=== PATIENT | female | born 1965 | race Caucasian/White ===

== ENCOUNTER → 2017-09-23 | Outpatient (CLI) | payer OTHER | END | disposition home or self-care (01) | LOC: KCIC MRI 12:42 | DX: M25.712 Osteophyte, left shoulder (principal) | CPT/HCPCS: 73221 ==

== ENCOUNTER → 2018-06-11 | Day surgery (SDC) | payer OTHER ==
[~2018-06-11] MED LIST: ACYC800T PO; ESTR2TAB PO; HYDR12.53 PO; HYDROmorphone 2 MG/ML VIAL IV PRN; IV RINGERS,LACTATED 1000ML 1,000 ML IV SCH; LIDOCAINE 1% PF 2 ML VIAL. ID PRN; MORPHINE SULFATE 2 MG/ML VIAL. IV PRN; OMEP40CA5 PO; ONDANSETRON PF 4 MG/2 ML VIAL. IV PRN; OXYB5TAB7 PO; PROCHLORPERAZINE 10 MG/2 ML VIAL. IV PRN; PROPOFOL 40 ML IV ONE; fentaNYL PF VIAL 100 MCG/2 ML VIAL IV PRN
[2018-06-11 09:12] VITALS: BP 137/88
--- NOTE | 2018-06-11 22:10 | CONS ---
DATE OF CONSULTATION: 06/11/2018 REFERRING PHYSICIAN: Richard Fuentes MD HISTORY OF PRESENT ILLNESS: A 53-year-old female whose past medical history significant for colonic polyps, diverticular disease, high blood pressure, hyperlipidemia, seen for dysphagia and abdominal pain with diarrhea. She states she had no bleeding. Dysphagia with solids is intermittent and is recurrent. Prior dilatation was ____11/2015. She also had polyps at that time and is here for further evaluation. PAST MEDICAL HISTORY: Arthritis, colonic polyps, diverticular disease, GERD, hypertension, hyperlipidemia. ALLERGIES: FLAGYL. MEDICATIONS: Include acyclovir, estradiol, hydrochlorothiazide, omeprazole and oxybutynin. SOCIAL HISTORY: Nonsmoker, social drinker. FAMILY HISTORY: Significant for diabetes, hypertension, colonic polyps with her mother as well as an OH. PAST SURGICAL HISTORY: Status post cholecystectomy, hysterectomy, hernia repair, eye surgery. REVIEW OF SYSTEMS: Per records. PHYSICAL EXAMINATION: GENERAL: A well-nourished, well-developed female, who is alert, cooperative, in no acute distress. VITAL SIGNS: Temperature is 97.8, pulse 100, respiratory rate is 20. HEENT: Normocephalic and atraumatic head. Pupils and extraocular muscles are not tested. Sclerae anicteric. NECK: Supple. LUNGS: Clear. CARDIOVASCULAR: Reveals S1, S2 without S3, S4 or appreciable murmur. ABDOMEN: Soft abdomen, normal bowel sounds without appreciable hepatosplenomegaly. EXTREMITIES: Reveals no cyanosis, clubbing, edema. IMPRESSION AND PLAN: 1. Dysphagia, mostly likely secondary to recurrent Schatzki's ring. Differential includes achalasia, malignancy, eosinophilic esophagitis, Velazquez's. Recommend upper endoscopy with possible biopsy and/or dilatation. Risks and benefits have been discussed. The patient is willing to proceed at this time. 2. History of colonic polyps with diarrhea and left lower quadrant abdominal pain. Interval colonoscopy is recommended to assess for inflammatory bowel disease, ischemic colitis, diverticulitis, ____ and/or recurrent polyp/cancer. KOTA CONNORS MD DR: LEDY/contreras JOB#: [id number] / [id number]
--- NOTE | 2018-06-14 15:07 | PATHOLOGY ---
[facility] Accession Number: [id number] . 01 Material submitted: . DISTAL ESOPHAGEAL BX . 01 Clinician provided ICD-10: R10.9 R19.7 . 01 Clinical history: . Dysphagia, abdominal pain, diarrhea . 02 Diagnosis: Esophageal biopsies, distal esophagus: - Esophagitis with eosinophils. . (JPM:mml; 06/14/18) QLM/06/14/2018 . 02 Comment: Sections of the distal esophageal biopsy reveal segments of tangentially-oriented, hyperplastic squamous esophageal mucosa. There are focal intraepithelial eosinophils as well as focal intraepithelial neutrophils. The differential diagnosis of esophagitis with eosinophils includes reflux esophagitis, "pill esophagitis", and eosinophilic esophagitis. Most areas show few intraepithelial eosinophils. These areas plus the presence of focal intraepithelial neutrophils would be compatible with reflux esophagitis. However, there is one focus showing up to approximately 20-30 intraepithelial eosinophils per high power field. This is suggestive of eosinophilic esophagitis. There is no evidence of Velazquez's change, dysplasia, or malignancy. Correlate clinically. . (JPM:mml; 06/14/18) . 02 Electronically signed: . Brian Chávez MD, Pathologist NPI- [id number] . 01 Gross description: . Received in formalin labeled "Conchis Davis, distal esophageal BX," are 3 segments of gonzalez soft tissue measuring 1.2 x 0.8 x 0.2 cm in aggregate dimensions and ranging from 0.4 to 0.5 cm in maximum dimension. The specimen is submitted entirely in cassette A1. (TSD; 06/11/2018) TOB/TOB . 02 Pathologist provided ICD-10: K20.9 . 02 CPT . 813081 Specimen Comment: A courtesy copy of this report has been sent to Specimen Comment: [phone], . Specimen Comment: Report sent to / DR CLARK Performed at: [address], [place] [id number] MD Christo Marina MD Phone: [phone] Performed at: 02 [facility] [address] [place], [place] [id number] MD Brian Chávez MD Phone: [phone]
== END | disposition home or self-care (01) ==
LOC: SURG 06:39
PROVIDERS: ATTEND Internal Medicine Gastroenterology
DX: K57.30 Diverticulosis of large intestine without perforation or abscess without bleeding (principal); K64.0 First degree hemorrhoids; K22.2 Esophageal obstruction; K21.0 Gastro-esophageal reflux disease with esophagitis; K31.7 Polyp of stomach and duodenum; I10 Essential (primary) hypertension; E78.5 Hyperlipidemia, unspecified; Z86.010 Personal history of colon polyps; M19.90 Unspecified osteoarthritis, unspecified site; Z88.8 Allergy status to other drugs, medicaments and biological substances; Z72.89 Other problems related to lifestyle; Z79.899 Other long term (current) drug therapy; Z82.49 Family history of ischemic heart disease and other diseases of the circulatory system; Z83.3 Family history of diabetes mellitus; Z83.71 Family history of colonic polyps; Z90.710 Acquired absence of both cervix and uterus; Z90.49 Acquired absence of other specified parts of digestive tract; Z98.890 Other specified postprocedural states
CPT/HCPCS: 43239; 43450; 45378; 88305; J2704

== ENCOUNTER → 2018-09-01 | Outpatient (CLI) | payer OTHER ==
[2018-06-11 09:12] VITALS: BP 137/88
[~2018-09-01] MED LIST changes: -HYDR12.53 PO; +HYDR12.575 PO; -HYDROmorphone 2 MG/ML VIAL IV PRN; -IV RINGERS,LACTATED 1000ML 1,000 ML IV SCH; -LIDOCAINE 1% PF 2 ML VIAL. ID PRN; -MORPHINE SULFATE 2 MG/ML VIAL. IV PRN; -ONDANSETRON PF 4 MG/2 ML VIAL. IV PRN; -PROCHLORPERAZINE 10 MG/2 ML VIAL. IV PRN; -PROPOFOL 40 ML IV ONE; -fentaNYL PF VIAL 100 MCG/2 ML VIAL IV PRN
--- NOTE | 2018-09-01 12:30 | RAD ---
EXAM: Nuclear gastric emptying scan. HISTORY: Reflux. COMPARISON: None. TECHNIQUE: Serial static images were obtained over the stomach following oral administration of 2.2 mCi of 99m-Tc sulfur colloid. FINDINGS: The stomach empties into the small bowel without evidence of reflux in the area of the esophagus. The estimated time for half emptying of gastric contents, i.e. 'gastric emptying time' is 108 minutes (normal is 66 +/- 22 minutes). There is 66% retained tracer activity within the stomach at one hour, 45% retained tracer activity within the stomach at 2 hours, 27% retained tracer activity within the stomach at 3 hours, and 11% retained tracer activity within the stomach at 4 hours. IMPRESSION: Delayed gastric emptying. The gastric emptying half-time is calculated at 108 minutes. Electronically signed by: Kaye Gibbs MD (09/01/2018 12:25 PM) [facility]
== END | disposition home or self-care (01) ==
LOC: NM 07:16
PROVIDERS: ATTEND Internal Medicine Gastroenterology
DX: K30 Functional dyspepsia (principal)
CPT/HCPCS: 78264; A9541

== ENCOUNTER → 2018-09-29 | Outpatient (CLI) | payer OTHER ==
[2018-06-11 09:12] VITALS: BP 137/88
[2018-10-02 13:15] LABS: ALTERNARIA <0.10 kU/L (Class 0); ASH <0.10 kU/L (Class 0); ASPERGILLUS <0.10 kU/L (Class 0); BERMUDA <0.10 kU/L (Class 0); CAT DANDER <0.10 kU/L (Class 0); CLADOSPORIUM <0.10 kU/L (Class 0); COCKROACH <0.10 kU/L (Class 0); CODFISH <0.10 kU/L (Class 0); CORN <0.10 kU/L (Class 0); COTTONWOOD <0.10 kU/L (Class 0); D PTERONYSSINUS <0.10 kU/L (Class 0); DOG DANDER <0.10 kU/L (Class 0); DUST MITE <0.10 kU/L (Class 0); EGG WHITE <0.10 kU/L (Class 0); ELM <0.10 kU/L (Class 0); MAPLE <0.10 kU/L (Class 0); MILK <0.10 kU/L (Class 0); MOUNTAIN CEDAR <0.10 kU/L (Class 0); MULBERRY <0.10 kU/L (Class 0); NETTLE <0.10 kU/L (Class 0); OAK TREE <0.10 kU/L (Class 0); PEANUT <0.10 kU/L (Class 0); PENICILLIUM <0.10 kU/L (Class 0); RAST IGE 14 IU/mL (0-100); RUSSIAN THISTLE <0.10 kU/L (Class 0); SCALLOP <0.10 kU/L (Class 0); SHEEP SORREL <0.10 kU/L (Class 0); SHORT RAGWEED <0.10 kU/L (Class 0); SHRIMP <0.10 kU/L (Class 0); SOYBEAN <0.10 kU/L (Class 0); TIMOTHY GRASS <0.10 kU/L (Class 0); WALNUT <0.10 kU/L (Class 0); WHEAT <0.10 kU/L (Class 0)
== END | disposition home or self-care (01) ==
LOC: LAB 14:19
PROVIDERS: ATTEND Otolaryngology
DX: J30.89 Other allergic rhinitis (principal); I10 Essential (primary) hypertension; E78.00 Pure hypercholesterolemia, unspecified
CPT/HCPCS: 36415; 82784; 86001

== ENCOUNTER → 2018-12-15 | Outpatient (CLI) | payer OTHER ==
[2018-06-11 09:12] VITALS: BP 137/88
--- NOTE | 2018-12-15 14:42 | KCIC ---
MRI of the brain without contrast 12/15/2018 Clinical History: Worsening migraine headaches. Technique: Unenhanced T1-weighted sagittal and axial, T2-weighted axial and coronal and FLAIR, gradient echo and diffusion-weighted axial images of the brain were obtained. Findings: Comparison is made to the patient's CT scan of the head dated 12/14/2017. The ventricles and sulci are within normal limits in size and configuration. Patchy and a few small scattered areas of increased signal intensity are seen within the periventricular and subcortical white matter of both cerebral hemispheres on the FLAIR and T2-weighted images consistent most likely with areas of minimal small vessel ischemic disease. No acute parenchymal abnormality is seen. No extra-axial fluid collection is seen. There is no MRI evidence of acute ischemia/infarction. Mild mucosal thickening is seen scattered throughout the paranasal sinuses. Normal flow voids are seen within the major vascular structures surrounding the brain parenchyma. A 1.2 cm benign-appearing lesion is seen involving the right parietal scalp. Impression: No acute parenchymal abnormality is seen. Electronically signed by: Esteban Fischer MD (12/15/2018 2:38 PM) [facility]
--- NOTE | 2018-12-15 16:00 | KCIC ---
Bilateral renal ultrasound without comparison for renal cyst on CT. TECHNIQUE AND FINDINGS: Real-time grayscale and color Doppler evaluation of the kidneys and urinary bladder is performed. The aorta is nonaneurysmal. The IVC is patent. The right kidney measures 10.5 x 4.1 x 4.9 cm, and the left measures 11.7 x 5.7 x 5.0 cm. There is no hydronephrosis involving either kidney. At the upper pole the right kidney, there is a 2.2 x 1.9 x 2.2 cm heterogeneous circumscribed abnormality with coarse internal echoes, suspicious for complex cystic renal mass. There is some color Doppler flow along the margin of this lesion. At the superior pole the left kidney is a 1.7 x 1.4 x 1.7 cm simple appearing cyst. The bladder is decompressed due to recent voiding. Ureteral jets are not identified. IMPRESSION: 1. Complex cystic2.2 cm lesion in superior pole the right kidney suspicious for cystic or solid neoplasm. If deemed clinically necessary, this lesion could be further characterized with contrast enhanced MRI of the abdomen. This lesion is also amenable to percutaneous biopsy and thermal ablation if clinically warranted. Electronically signed by: Juan Jose Mackey MD (12/15/2018 3:57 PM) [facility]
== END | disposition home or self-care (01) ==
LOC: KCIC MRI 13:03
PROVIDERS: ATTEND Nurse Practitioner
DX: G43.909 Migraine, unspecified, not intractable, without status migrainosus (principal); N28.9 Disorder of kidney and ureter, unspecified; N28.1 Cyst of kidney, acquired; N95.9 Unspecified menopausal and perimenopausal disorder
CPT/HCPCS: 70551; 76770

== ENCOUNTER → 2018-12-27 | Outpatient (CLI) | payer OTHER ==
[2018-06-11 09:12] VITALS: BP 137/88
--- NOTE | 2018-12-27 17:04 | KCIC ---
MR of the right shoulder HISTORY: Right shoulder pain for one month. No known injury. TECHNIQUE: Routine multiplanar sequences are obtained. FINDINGS: The acromioclavicular joint is mildly degenerative. Mild rotator cuff tendinosis. No significant subdeltoid bursal effusion. No evidence of rotator cuff tear. Small glenohumeral joint effusion. No clear cut labral detachment or separation. No evidence of acute articular cartilage defect. The biceps tendon is intact. There is no bone destruction or acute fracture. No acute soft tissue abnormality. IMPRESSION: 1. Small joint effusion. 2. Mild rotator cuff tendinosis without evidence of tear. Electronically signed by: Vinod Alvarado MD (12/27/2018 5:01 PM) [facility]
== END | disposition home or self-care (01) ==
LOC: KCIC MRI 15:30
PROVIDERS: ATTEND Nurse Practitioner
DX: M25.411 Effusion, right shoulder (principal); M75.91 Shoulder lesion, unspecified, right shoulder; M19.011 Primary osteoarthritis, right shoulder
CPT/HCPCS: 73221

== ENCOUNTER → 2019-01-26 | Outpatient (CLI) | payer OTHER ==
[2018-06-11 09:12] VITALS: BP 137/88
[~2019-01-26] MED LIST changes: +GADOTERATE 7.5 MMOL/15ML VIAL. IVP ONE
--- NOTE | 2019-01-26 17:13 | KCIC ---
EXAM: MRI ABDOMEN WITH AND WITHOUT CONTRAST. HISTORY: Renal mass. TECHNIQUE: MRI of the abdomen was performed before and after the intravenous administration of 14 mL Gadavist. COMPARISON: 05/19/2018. FINDINGS: Kidneys: Bilateral nonenhancing T2 hyperintense lesions are consistent with benign cysts. The largest in the right interpolar region contains some T1 hyperintense material dependently consistent with layering proteinaceous contents. It measures 1.7 x 1.2 cm. The largest on the left appears simple and measures 1.2 cm. A few additional tiny cysts are seen bilaterally. Liver: There is no significant steatosis. There are no suspicious hepatic lesions. The liver is not completely included on all series. Biliary tree: The gallbladder is surgically absent. The common duct is not dilated. There are no suspicious pancreatic parenchymal lesions. The pancreatic duct is not dilated. Other findings: The adrenal glands and spleen are unremarkable. IMPRESSION: 1. Bilateral renal lesions are consistent with benign cysts. No suspicious lesions are identified. Electronically signed by: Meli Redman MD (01/26/2019 5:10 PM) [facility]
== END | disposition home or self-care (01) ==
LOC: KCIC MRI 12:58
PROVIDERS: ATTEND Urology
DX: N28.89 Other specified disorders of kidney and ureter (principal); Z90.49 Acquired absence of other specified parts of digestive tract
CPT/HCPCS: 74183; A9575

== ENCOUNTER → 2019-09-21 | Outpatient (CLI) | payer OTHER ==
[2018-06-11 09:12] VITALS: BP 137/88
[~2019-09-21] MED LIST changes: -GADOTERATE 7.5 MMOL/15ML VIAL. IVP ONE; +OMEP40CA45 PO; -OMEP40CA5 PO; +OXYB5TAB10 PO; -OXYB5TAB7 PO
--- NOTE | 2019-09-21 14:05 | KCIC ---
MRI Cervical Spine Without Contrast History: Neck and low back pain, pain in the right hip and arm Technique: Multiplanar, multi sequential noncontrast MR imaging was performed of the cervical spine. Comparison: None Findings: Cervical vertebral body stature is maintained. There is negligible anterior spondylolisthesis C4-5. Cervical cord caliber is within normal limits without defined or expansile signal abnormality. There is no significant marrow edema. There is mild degenerative disc disease C4-5 and C5-6, mild disc desiccation C6-7. There is mild cervical levoscoliosis, questionable thoracic dextroscoliosis not fully evaluated. C2-C3: Neural foramina and spinal canal are adequate. C3-C4: Spinal canal and neural foramina are adequate. C4-C5: There is fairly severe right facet degenerative change. Neural foramina and spinal canal are adequate. C5-C6: There is minimal disc osteophyte complex and bulge, central canal adequate about 11 mm, very mild narrowing of the right lateral recess. There is uncovertebral degenerative change bilaterally. Tiny protrusion at the anterior margin of left neural foramen is difficult to exclude on this exam. There is likely moderate narrowing of the left neural foramen, right neural foramen not significantly narrowed. C6-C7: There is minimal posterior bulge about 1 to 2 mm AP slightly indenting the ventral thecal sac in the lateral recesses, left greater than right. Central canal is adequate 11 mm. There is left uncovertebral degenerative change, tiny protrusion difficult to exclude at the anterior margin of left neural foramen.. Right neural foramen is adequate. There is birt-pe-zxqwjsmy narrowing of the left neural foramen. C7-T1: Spinal canal and neural foramina are adequate. Impression: 1. There is no significant cervical spinal stenosis. 2. Uncovertebral degenerative change contributes to narrowing of the left C5-6 and C6-7 neural foramina, tiny protrusions at the anterior margins of the neural foramina difficult to exclude. 3. There is mild degenerative disc disease and spondylosis such as C4-5 and C5-6. Electronically signed by: Ishan Dennis MD (09/21/2019 2:02 PM) [facility]
--- NOTE | 2019-09-21 14:27 | KCIC ---
MRI Lumbar Spine without contrast History: Low back pain, pain into the arm and right hip Technique: Multiplanar, multi sequential noncontrast MR imaging was performed of the lumbar spine. Comparison: None Findings: Lumbar vertebral body stature is overall maintained. There is hemangioma of S2, also on the right of L1. There is no significant marrow edema. AP alignment is maintained. Conus terminates at the thoracic L2. There is very mild lumbar levoscoliosis. There is very mild disc desiccation L3-4 and L4-5. L1-L2: This level was not included on the axial images. Spinal canal and neural foramina are overall adequate. L2-L3: This level was not included on the axial images. Spinal canal and neural foramina are overall adequate. L3-L4: Spinal canal and neural foramina are adequate. L4-L5: Neural foramina and spinal canal are adequate. There is minimal buckling of the ligamentum flavum. L5-S1: Neural foramina and spinal canal are adequate. Impression: 1. There is no significant lumbar spinal stenosis or neural foramina compromise. Electronically signed by: Ishan Dennis MD (09/21/2019 2:24 PM) [facility]
== END | disposition home or self-care (01) ==
LOC: KCIC MRI 12:41
PROVIDERS: ATTEND Family Medicine
DX: M43.12 Spondylolisthesis, cervical region (principal); M50.321 Other cervical disc degeneration at C4-C5 level; M25.78 Osteophyte, vertebrae; M48.02 Spinal stenosis, cervical region; Z90.710 Acquired absence of both cervix and uterus
CPT/HCPCS: 72141; 72148

== ENCOUNTER → 2019-10-05 | Outpatient (CLI) | payer OTHER ==
[2018-06-11 09:12] VITALS: BP 137/88
--- NOTE | 2019-10-05 16:55 | KCIC ---
3 view study of both knees Clinical indications: Chronic bilateral knee pain left worse than right. Left knee: No acute fracture or dislocation or lytic process is seen. Mild degenerative spurring without joint space narrowing of the patellofemoral joint compartment is seen. No significant joint space narrowing or spurring of the medial or lateral tibial femoral joint compartments is seen. Minimal swelling of the suprapatellar joint recess is seen. Right knee: No acute fracture or dislocation or lytic process is seen. No significant joint space narrowing or spurring of the medial or lateral tibiofemoral joint compartments is seen. There is a small radiopaque loose body seen within the anterior tibiofemoral joint compartment in the lateral view. This measures 5 mm. The patella is normally aligned. Minimal spurring of the superior posterior aspect of the patella is seen. No significant joint space narrowing of the patellofemoral joint compartment is seen. There is mild swelling of the suprapatella joint recess. IMPRESSION: Minimal degenerative osteoarthritis. This mainly involves the patellofemoral joint compartment of both knees. Therefore, chondromalacia patellae is possible. Small loose body of the right knee. Electronically signed by: Martir Aranda MD (10/05/2019 4:52 PM) [facility]
== END | disposition home or self-care (01) ==
LOC: KCIC 14:32
PROVIDERS: ATTEND Nurse Practitioner
DX: M17.0 Bilateral primary osteoarthritis of knee (principal); M23.41 Loose body in knee, right knee
CPT/HCPCS: 73562

== ENCOUNTER → 2019-11-16 | Outpatient (CLI) | payer OTHER ==
[2018-06-11 09:12] VITALS: BP 137/88
== END | disposition home or self-care (01) ==
LOC: SPEC 09:49
PROVIDERS: ATTEND Nurse Practitioner Women's Health
DX: N94.9 Unspecified condition associated with female genital organs and menstrual cycle (principal)
CPT/HCPCS: 87086

== ENCOUNTER → 2019-12-28 | Outpatient (CLI) | payer OTHER ==
[2018-06-11 09:12] VITALS: BP 137/88
== END | disposition home or self-care (01) ==
LOC: SPEC 11:45
PROVIDERS: ATTEND Nurse Practitioner Women's Health
DX: R10.2 Pelvic and perineal pain (principal)
CPT/HCPCS: 87086

== ENCOUNTER → 2020-11-15 | Outpatient (CLI) | payer OTHER ==
[2018-06-11 09:12] VITALS: BP 137/88
== END ==
LOC: SPEC 11:21
PROVIDERS: ATTEND Nurse Practitioner
DX: R39.9 Unspecified symptoms and signs involving the genitourinary system (principal)
CPT/HCPCS: 87086

== ENCOUNTER → 2020-11-28 | Outpatient (CLI) | payer OTHER ==
[2018-06-11 09:12] VITALS: BP 137/88
[~2020-11-28] MED LIST changes: -ACYC800T PO; +ACYC800T88 PO
--- NOTE | 2020-11-28 12:30 | KCIC ---
Examination: MRI of the left knee without contrast HISTORY: History of left knee pain, anterior knee pain COMPARISON: None available TECHNIQUE: Multiplanar, multisequence MR imaging of the left knee was performed without contrast. FINDINGS: The anterior cruciate ligament, posterior cruciate ligament appears intact.The medial, lateral menisc us appears intact. There is deep fissuring of cartilage identified in the patellofemoral compartments. There is complete cartilage loss identified in the weightbearing portion of the medial compartment. There is mild supe rficial fraying of cartilage identified in the lateral compartment. Small knee joint effusion. The medial, lateral retinaculum appears intact. Patchy trabecular edema identified in the medial femo ral condyle and medial tibial plateau. Small knee joint effusion. Moderate joint space loss identifie d in the medial, lateral, patellofemoral compartments. IMPRESSION: 1. Grade III chondromalacia medial compartment. Tricompartmental degenerative changes most in the med ial, lateral, patellofemoral compartments with grade II chondromalacia patellofemoral compartments. 2. Small knee joint effusion. Electronically signed by: Del Jaffe MD (11/28/2020 12:27 PM) [id number]
== END ==
LOC: KCIC MRI 10:42
PROVIDERS: ATTEND Nurse Practitioner
DX: M25.462 Effusion, left knee (principal); M94.262 Chondromalacia, left knee; M17.12 Unilateral primary osteoarthritis, left knee
CPT/HCPCS: 73721

== ENCOUNTER → 2021-03-20 | Outpatient (CLI) | payer OTHER ==
[2018-06-11 09:12] VITALS: BP 137/88
[~2021-03-20] MED LIST changes: -OMEP40CA45 PO; +OMEP40CA7 PO
--- NOTE | 2021-03-20 15:22 | KCIC ---
EXAM: LEFT KNEE, 3 VIEWS. HISTORY: Left knee pain. COMPARISON: 10/05/2019. FINDINGS: No fractures are identified. The medial compartmental joint space is moderately narrowed, progressed since the prior study. There are small associated osteophytes. Alignment is normal. There is no joint effusion. IMPRESSION: 1. Progression of medial compartmental joint space narrowing, now consistent with moderate medial com partmental osteoarthritis. Electronically signed by: Meli Redman MD (03/20/2021 3:20 PM) [facility]
== END ==
LOC: KCIC 10:45
PROVIDERS: ATTEND Nurse Practitioner
DX: S89.92XA Unspecified injury of left lower leg, initial encounter (principal); M25.762 Osteophyte, left knee; M25.862 Other specified joint disorders, left knee; X58.XXXA Exposure to other specified factors, initial encounter; Y93.89 Activity, other specified; Y92.89 Other specified places as the place of occurrence of the external cause; Y99.8 Other external cause status
CPT/HCPCS: 73562

== ENCOUNTER → 2021-09-04 | Outpatient (CLI) | payer OTHER ==
[2018-06-11 09:12] VITALS: BP 137/88
[~2021-09-04] MED LIST changes: -ESTR2TAB PO; +ESTR2TAB3 PO
--- NOTE | 2021-09-04 14:03 | KCIC ---
EXAMINATION: MRI LEFT LOWER EXTREMITY JOINT WITHOUT INDICATIONS: Left knee pain, patient fell on February 23. Anterior knee pain going up and down stairs. TECHNIQUE: Multiplanar multisequence MRI of the left knee was obtained without contrast. COMPARISON: None. FINDINGS: MENISCI: The medial and lateral menisci are intact. LIGAMENTS: The anterior and posterior cruciate ligaments are intact. The medial collateral ligament and lateral collateral ligament complex are intact. EXTENSOR MECHANISM: Quadriceps and patellar tendons are intact. Fat pads are normal. Retinacula are i ntact. BONES AND CARTILAGE: No acute fracture. Marrow signal is normal. There is unchanged predominantly superficial partial-thickness cartilage loss along the medial patell ar facet with a deeper cartilage defect at the median ridge. Small subchondral cysts in the patella. There is deep partial thickness cartilage loss in the far inferior aspect of the medial trochlea. Unchanged widespread full-thickness cartilage loss throughout the anterior and central weightbearing medial femoral condyle, and partial-thickness cartilage loss in the posterior weightbearing medial fe moral condyle. Subchondral marrow edema in the medial femoral condyle and medial tibial plateau has r esolved Mild remodeling of the articular surface of the medial femoral condyle. There is deep partial thickness cartilage loss in the anterior medial tibial plateau. No significant cartilage loss in the lateral compartment cartilage. OTHER: Small joint effusion. No Fried's cyst or bursitis remaining tendons and muscles are intact.. IMPRESSION: 1. No meniscal or ligamentous injury. 2. Medial and patellofemoral compartment cartilage loss. This is greatest in the medial compartment w here there is fairly widespread full-thickness cartilage loss. Electronically signed by: [place] MD (09/04/2021 2:01 PM) [id number]
== END ==
LOC: KCIC MRI 09:46
PROVIDERS: ATTEND Family Medicine
DX: M25.462 Effusion, left knee (principal); M25.862 Other specified joint disorders, left knee
CPT/HCPCS: 73721